=== PATIENT | female | born 1955 | race Caucasian/White ===

== ENCOUNTER 2019-09-20 06:25 | Day surgery (SDC) | payer OTHER ==
[~2019-09-20] VITALS: Ht 149.9 cm; Wt 47.7 kg
[~2019-09-20 06:25] MED LIST: ATOR10TA84 PO; GABA-1216 PO; MONT4GRA2 PO; OMEP10 PO; SODIUM CHLORIDE 0.9% 1,000 ML ONE
[2019-09-20] MEDS ORDERED: ALBUTEROL SULFATE 2.5 MG/0.5 ML NEB SOLUTION NEB ONE (06:26)
[2019-09-20] MEDS ORDERED: BENZOCAINE 20% 50 MCG/SPRAY 57 GM TP ONE (06:26)
[2019-09-20] MEDS ORDERED: LIDOCAINE 2% 30 ML JELLY TP ONE (06:26)
[2019-09-20] MEDS ORDERED: SODIUM CHLORIDE 0.9% 1,000 ML IV ONE (06:30)
[2019-09-20] MEDS ORDERED: ATOR20TA86 PO (07:11)
[2019-09-20] MEDS ORDERED: ACET-784 PO (07:11)
[2019-09-20] MEDS ORDERED: MONT10TA21 PO (07:11)
[2019-09-20] MEDS ORDERED: OMEP20 PO (07:11)
[2019-09-20] MEDS ORDERED: GABA-1181 PO (07:11)
[2019-09-20] MEDS ORDERED: MIDAZOLAM HCL 2 MG/2 ML VIAL ONE (08:03)
[2019-09-20] MEDS ORDERED: FentaNYL CITRATE-PF 100 MCG/2 ML VIAL ONE (08:04)
[2019-09-20] MEDS ORDERED: MethylPREDNISolone SOD SUCC 125 MG/2 ML VIAL IVP ONE (08:30)
[2019-09-20] MEDS ORDERED: MethylPREDNISolone SOD SUCC 125 MG/2 ML VIAL ONE (09:03)
[2019-09-20] MEDS ORDERED: OXYGEN THERAPY IH SCH (20:00)
== END 2019-09-20 10:25 | disposition home or self-care (01) ==
LOC: SURGERY 06:25
PROVIDERS: ATTEND Internal Medicine Critical Care Medicine
DX: R05 Cough (principal); R91.1 Solitary pulmonary nodule; J34.89 Other specified disorders of nose and nasal sinuses; J98.8 Other specified respiratory disorders; J38.4 Edema of larynx; B37.0 Candidal stomatitis; J05.10 Acute epiglottitis without obstruction; J43.9 Emphysema, unspecified; E78.00 Pure hypercholesterolemia, unspecified; Z88.8 Allergy status to other drugs, medicaments and biological substances; Z87.01 Personal history of pneumonia (recurrent); Z79.899 Other long term (current) drug therapy
CPT/HCPCS: 31623; 31624; 71045; 87015; 87070; 87101; 87205; 87206; 87220; 88108; 88312; J2250; J2930; J3010; J7030